=== PATIENT | female | born 1980 | race Caucasian/White ===

== ENCOUNTER 2023-07-01 07:10 | Day surgery (SDC) | payer OTHER | END 2023-07-01 09:57 | disposition home or self-care (01) | LOC: DS 07:10 | PROC: 0DJD8ZZ Inspection of Lower Intestinal Tract, Via Natural or Artificial Opening Endoscopic (ICD-10-PCS; principal; 2023-07-01) | DX: Z12.11 Encounter for screening for malignant neoplasm of colon (principal); Z80.0 Family history of malignant neoplasm of digestive organs; E66.9 Obesity, unspecified; Z68.35 Body mass index [BMI] 35.0-35.9, adult; Z88.2 Allergy status to sulfonamides ==